=== PATIENT | female | born 2000 | race Caucasian/White ===

== ENCOUNTER 2018-07-16 09:52 | Emergency (ER) | payer SELFPAY ==
--- NOTE | 2018-07-16 10:36 | ER Document Report ---
ED Medical Screen (RME) - General Chief Complaint: Probable Seizure Stated Complaint: POSSIBLE SEIZURE Time Seen by Provider: 07/16/18 10:33 Mode of Arrival: Medic Information source: Patient Notes: This is a 18-year-old female brought in by EMS after passing out at work. Patient has had history of drop attacks that appears similar to seizures and has had a workup (Dr. Richard) for seizures but the work it has thus far been negative. She does have a history of iron deficiency anemia. She states she was at work today when she had a similar episode. She does not recall the episode. She does not have any tongue biting and did not have any urinary incontinence. Currently, she appears well, her vital signs are stable, she is mentating normally, her lungs are clear, her heart is regular and her neurologic exam looks quite good. TRAVEL OUTSIDE OF THE [place] IN LAST 30 DAYS: No - Related Data Allergies/Adverse Reactions: No Known Allergies Allergy (Verified 07/16/18 09:53) Past Medical History - Social History Chew tobacco use (# tins/day): No Frequency of alcohol use: None Drug Abuse: None Neurological Medical History: Reports: Hx Seizures Renal/ Medical History: Denies: Hx Peritoneal Dialysis Psychiatric Medical History: Reports: Hx Attention Deficit Hyperactivity Disorder, Hx Bipolar Disorder, Hx Obsessive Compulsive Disorder, Hx Post Traumatic Stress Disorder Infectious Medical History: Denies: Hx MRSA - Immunizations Immunizations up to date: Yes Hx Diphtheria, Pertussis, Tetanus Vaccination: Yes Physical Exam - Vital signs Vitals: Temp Pulse Resp BP Pulse Ox 98.3 F 64 18 136/63 H 100 07/16/18 09:59 07/16/18 09:59 07/16/18 09:59 07/16/18 09:59 07/16/18 09:59 Course - Vital Signs Vital signs: Temp Pulse Resp BP Pulse Ox 98.3 F 64 18 136/63 H 100 07/16/18 09:59 07/16/18 09:59 07/16/18 09:59 07/16/18 09:59 07/16/18 09:59 Doctor's Discharge - Discharge Referrals: SAKSHI HENAO MD [Primary Care Provider] - Follow up as needed
--- NOTE | 2018-07-16 11:35 | ER Document Report ---
ED Seizure <JOSE TOWNSEND - Last Filed: 07/16/18 12:36> - General Mode of Arrival: Medic Information source: Patient <SHAWANDA YUNG - Last Filed: 07/16/18 12:54> - General Chief Complaint: Probable Seizure Stated Complaint: POSSIBLE SEIZURE Time Seen by Provider: 07/16/18 10:33 Notes: 18-year-old female who presents to the emergency department today secondary to a witnessed seizure. Patient states she started a new job a week ago and her seizure happened today at work. Patient states she remembers nothing about the events, a coworker called 911 when it happened. Patient has had seizures in the past without a diagnosed seizure disorder. Mom states that when the patient was having seizures in the past she was found to be anemic, she began taking iron supplements and had not had a seizure since until today. Patient has not taken her iron supplements in the last month and half. Mom and patient both state that if this would happened at home or around people that knew her she would not have come to the emergency department. Patient states she has a headache now which is her normal postictal presentation. (AGA,SHAWANDA) - Related Data Allergies/Adverse Reactions: No Known Allergies Allergy (Verified 07/16/18 09:53) Past Medical History - General Information source: Patient - Social History Smoking Status: Never Smoker Cigarette use (# per day): No Chew tobacco use (# tins/day): No Frequency of alcohol use: None Drug Abuse: None Lives with: Family Family History: Reviewed & Not Pertinent Patient has suicidal ideation: No Patient has homicidal ideation: No Neurological Medical History: Reports: Hx Seizures Renal/ Medical History: Denies: Hx Peritoneal Dialysis Psychiatric Medical History: Reports: Hx Attention Deficit Hyperactivity Disorder, Hx Bipolar Disorder, Hx Obsessive Compulsive Disorder, Hx Post Traumatic Stress Disorder Surgical Hx: Negative - Immunizations Immunizations up to date: Yes Hx Diphtheria, Pertussis, Tetanus Vaccination: Yes <SHAWANDA YUNG - Last Filed: 07/16/18 12:54> Review of Systems - Review of Systems Constitutional: No symptoms reported EENT: No symptoms reported Cardiovascular: No symptoms reported Respiratory: No symptoms reported Gastrointestinal: No symptoms reported Genitourinary: No symptoms reported Female Genitourinary: No symptoms reported Musculoskeletal: No symptoms reported Skin: No symptoms reported Hematologic/Lymphatic: No symptoms reported Neurological/Psychological: See HPI, Seizure, Headaches -: Yes All other systems reviewed and negative <SHAWANDA YUNG - Last Filed: 07/16/18 12:54> Physical Exam <JOSE TOWNSEND - Last Filed: 07/16/18 12:36> <SHAWANDA YUNG - Last Filed: 07/16/18 12:54> - Vital signs Vitals: Temp Pulse Resp BP Pulse Ox 98.3 F 64 18 136/63 H 100 07/16/18 09:59 07/16/18 09:59 07/16/18 09:59 07/16/18 09:59 07/16/18 09:59 - Notes Notes: Physical Exam: General: Alert, appears well. HEENT: Normocephalic. Atraumatic. PERRL. Extraocular movements intact. Oropharynx clear. No tongue laceration. Neck: Supple. Non-tender. Respiratory: No respiratory distress. Clear and equal breath sounds bilaterally. Cardiovascular: Regular rate and rhythm. Abdominal: Normal Inspection. Non-tender. No distension. Normal Bowel Sounds. Back: Non-tender. No deformity or step off. Extremities: Moves all four extremities. Upper extremities: Normal inspection. Normal ROM. Lower extremities: Normal inspection. No edema. Normal ROM. Neurological: Normal cognition. AAOx4. Normal speech. Psychological: Normal affect. Normal Mood. Skin: Warm. Dry. Normal color. (SHAWANDA YUNG) Course - Laboratory Result Diagrams: 07/16/18 11:08 07/16/18 11:08 <JOSE TOWNSEND - Last Filed: 07/16/18 12:36> - Laboratory Result Diagrams: 07/16/18 11:08 07/16/18 11:08 <SHAWANDA YUNG - Last Filed: 07/16/18 12:54> - Vital Signs Vital signs: Temp Pulse Resp BP Pulse Ox 98.3 F 64 18 136/63 H 100 07/16/18 09:59 07/16/18 09:59 07/16/18 09:59 07/16/18 09:59 07/16/18 09:59 - Laboratory Laboratory results interpreted by me: 07/16/18 11:08 MCH 26.8 L Discharge <JOSE TOWNSEND - Last Filed: 07/16/18 12:36> <SHAWANDA YUNG - Last Filed: 07/16/18 12:54> - Discharge Clinical Impression: Syncope and collapse Disposition: HOME, SELF-CARE Additional Instructions: Syncopal Episode Syncope (fainting or near-fainting) can occur from many different health problems. Or it can be a simple fainting spell requiring no treatment. It is safe for you to go home, but further evaluation will likely be necessary. Your work-up may include tests for internal bleeding, heart disease, medication problems, or near-strokes. Tests are not always required, however, depending on the nature of your problem. The warning signs of an impending faint include: dizziness, lightheadedness , nausea, hot flashes, tingling, and weakness. If this happens, lay down and put your feet up, then wait until all of these symptoms have passed before standing up again. If these episodes become recurrent, or if you develop chest pain, heart palpitations, mental confusion, blurred vision, or headache, then you should call the physician, or go to the emergency room. Your lab work today was unremarkable. Your CBC showed your red blood cells are at the lower limit of normal for hemoglobin content. Your total hemoglobin amount in the bloodstream is adequate. You will be given a prescription for iron tablets to continue to take in order to maintain adequate hemoglobin levels. Follow-up with a local primary care provider to manage your syncopal episodes, and your iron deficiency anemia. RETURN TO THE EMERGENCY ROOM IF ANY NEW OR WORSENING SYMPTOMS. Prescriptions: Ferrous Sulfate 325 mg PO DAILY #100 tablet Referrals: SAKSHI HENAO MD [COMMUNITY BASED STAFF] - Follow up as needed Scribe Attestation: 07/16/18 12:39 I personally performed the services described in the documentation, reviewed and edited the documentation which was dictated to the scribe in my presence, and it accurately records my words and actions. (JOSE TOWNSEND) Scribe Documentation - Scribe Written by Scribe:: Krystal Blanco, 07/16/2018 [id number] acting as scribe for :: Pepe <SHAWANDA YUNG - Last Filed: 07/16/18 12:54>
[2018-07-16 11:56] LABS: ALANINE AMINOTRANSFERASE 19 U/L (9-52); ALBUMIN 4.4 g/dL (3.5-5.0); ALKALINE PHOSPHATASE 80 U/L (38-126); ANION GAP 15 (5-19); ASPARTATE AMINO TRANSFERASE 18 U/L (14-36); BILIRUBIN,DIRECT 0.2 mg/dL (0.0-0.4); BILIRUBIN,TOTAL 0.6 mg/dL (0.2-1.3); BLOOD UREA NITROGEN 17 mg/dL (7-20); CALCIUM 9.2 mg/dL (8.4-10.2); CARBON DIOXIDE 25 mmol/L (22-30); CHLORIDE 104 mmol/L (98-107); GLUCOSE 85 mg/dL (75-110); POTASSIUM 4.1 mmol/L (3.6-5.0); TOTAL PROTEIN 7.8 g/dL (6.3-8.2)
[2018-07-16 12:05] LABS: ABSOLUTE BASOPHILS # (AUTO) 0.1 10^3/uL (0.0-0.2); ABSOLUTE EOSINOPHILS # (AUTO) 0.1 10^3/uL (0.0-0.6); ABSOLUTE LYMPHOCYTES (AUTO) 2.3 10^3/uL (0.5-4.7); ABSOLUTE MONOCYTES (AUTO) 0.7 10^3/uL (0.1-1.4); ABSOLUTE NEUT (AUTO) 6.6 10^3/uL (1.7-8.2); BASOPHILS % (AUTO) 0.6 % (0-2); EOSINOPHILS % (AUTO) 1.2 % (0-6); HEMATOCRIT 37.1 % (36.0-47.0); HEMOGLOBIN 12.3 g/dL (12.0-15.5); LYMPHOCYTES % (AUTO) 23.7 % (13-45); MEAN CORPUSCULAR HEMOGLOBIN 26.8 pg (27.0-33.4); MEAN CORPUSCULAR HGB CONC 33.2 g/dL (32.0-36.0); MEAN CORPUSCULAR VOLUME 81 fl (80-97); MONOCYTES % (AUTO) 7.2 % (3-13); PLATELET COUNT 200 10^3/uL (150-450); RED BLOOD COUNT 4.59 10^6/uL (3.72-5.28); RED CELL DISTRIBUTION WIDTH 13.9 % (11.5-14.0); SEGMENTED NEUTROPHILS % (AUTO) 67.3 % (42-78); TOTAL CELLS COUNTED % (AUTO) 100 %; WHITE BLOOD COUNT 9.8 10^3/uL (4.0-10.5)
[2018-07-16 13:02] VITALS: BP 124/69
--- NOTE | 2018-07-16 22:14 | EKG REPORT ---
SEVERITY:- BORDERLINE ECG - SINUS RHYTHM INFERIOR Q WAVES, PROBABLY NORMAL VARIATION : Confirmed by: Jairo Mckay 16-Jul-2018 22:13:36
== END 2018-07-16 13:03 | disposition home or self-care (01) ==
LOC: ER 09:52
DX: R55 Syncope and collapse (principal); R51 Headache
CPT/HCPCS: 36415; 80053; 83735; 84702; 85025; 93005; 93010; 99284

== ENCOUNTER 2018-11-03 04:33 | Emergency (ER) | payer OTHER ==
--- NOTE | 2018-11-03 05:09 | ER Document Report ---
ED Eye Complaint - General Chief Complaint: Chemical Exposure in Eye Stated Complaint: POSSIBLE CHEMICAL EXPOSURE Time Seen by Provider: 11/03/18 05:02 Mode of Arrival: Ambulatory Information source: Patient Notes: 18-year-old female in no acute distress presents to the emergency department after getting denatured alcohol sprayed into her eyes. 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 She turned on a large industrial size fan, grabbed a bottle that was labeled water, and sprayed into the fan to try to cool off but is actually denatured alcohol in the bottle. She was wearing safety goggles at the time. She does not wear contact lenses. States she irrigated her eye after with water. She says that her vision is very blurry at this time. She endorses headache. She denies tearing, redness of the eye, dizziness, lightheadedness, dyspnea, chest pain, nausea, vomiting. TRAVEL OUTSIDE OF THE [place] IN LAST 30 DAYS: No - HPI Patient complains to provider of: chemical exposure to eye Onset: This morning Eye location: Bilateral - Related Data Allergies/Adverse Reactions: No Known Allergies Allergy (Verified 07/16/18 09:53) Past Medical History - General Information source: Patient - Social History Smoking Status: Never Smoker Family History: Reviewed & Not Pertinent Patient has suicidal ideation: No Patient has homicidal ideation: No Neurological Medical History: Reports: Hx Seizures Renal/ Medical History: Denies: Hx Peritoneal Dialysis Psychiatric Medical History: Reports: Hx Attention Deficit Hyperactivity Disorder, Hx Bipolar Disorder, Hx Obsessive Compulsive Disorder, Hx Post Traumatic Stress Disorder Infectious Medical History: Denies: Hx MRSA - Immunizations Immunizations up to date: Yes Hx Diphtheria, Pertussis, Tetanus Vaccination: Yes Review of Systems - Review of Systems Constitutional: See HPI EENT: See HPI Cardiovascular: See HPI Respiratory: See HPI Gastrointestinal: No symptoms reported Genitourinary: No symptoms reported Female Genitourinary: No symptoms reported Musculoskeletal: No symptoms reported Skin: No symptoms reported Hematologic/Lymphatic: No symptoms reported Neurological/Psychological: No symptoms reported Physical Exam - Vital signs Vitals: Temp Pulse Resp BP Pulse Ox 98.2 F 68 21 H 135/76 H 100 11/03/18 04:38 11/03/18 04:38 11/03/18 04:38 11/03/18 04:38 12/10/18 04:38 - Notes Notes: Reviewed vital signs and nursing note as charted by RN. CONSTITUTIONAL: Well-appearing, well-nourished, acting appropriately for age HEAD: Normocephalic, atraumatic, no swelling EYES: PERRL, Conjunctivae clear, no drainage, EOMI, no scleral icterus. PH strip placed in eye estimated to be between 7 and 9 ENT: External ears without lesions, External auditory canal is patent, airway patent, mucous membranes pink and moist NECK: Supple, no masses CARD: Regular rate and rhythm, no murmurs, no rubs, no gallops, capillary refill < 2 seconds, symmetric pulses RESP: The lungs are clear to auscultation bilaterally, no wheezing, no rales, no rhonchi. Respiratory rate and effort are normal, normal chest excursion. No respiratory distress, no retractions, no stridor, no nasal flaring, no accessory muscle use. ABD/GI: Normal bowel sounds, non-distended, soft, non-tender, no rebound, no guarding, no palpable organomegaly EXT: Normal ROM in all joints, non-tender to palpation, no effusions, no edema SKIN: Normal color for age and race, warm, dry, good turgor, no acute lesions noted NEURO: No facial asymmetry, moves all extremities equally, motor and sensory function intact Course - Re-evaluation Re-evalutation: 11/03/18 05:09 18-year-old female who was at work and had a chemical exposure to her eye. It was identified as denatured alcohol and she arrived to the emergency department. She attempted to irrigate on the site. She does endorse very blurry vision bilateral, headache. pH testing was done and estimated to be between 7 and 9 in the eye. Plan is to get a visual acuity, irrigate the eye for 15 minutes at the irrigation station, and fluorescein stain the eye to assess for any ulcer or damage.. 11/03/18 05:18 11/03/18 05:45 Visual acuity after irrigation 20/50 right, 20/70 left 20/40 OU, applied fluorescein stain to both eyes and performed examination under slit lamp. No evidence of corneal ulcer, no evidence of corneal abrasion. Patient says that her vision is still blurry but improving. She is safe and stable to discharge. I gave her referral to ophthalmology and instructed her to call them this morning for follow-up. 11/03/18 05:54 - Vital Signs Vital signs: Temp Pulse Resp BP Pulse Ox 98.2 F 68 21 H 135/76 H 100 11/03/18 04:38 11/03/18 04:38 11/03/18 04:38 11/03/18 04:38 11/03/18 04:38 Discharge - Discharge Clinical Impression: Chemical exposure of eye Condition: Good Disposition: HOME, SELF-CARE Additional Instructions: Chemical in the Eye You have been treated for chemical exposure to the eye. Chemicals vary greatly in the amount of damage they can do to the eye. The most important part of treatment is to wash all traces of the chemical from the eye, which has been done as part of your emergency treatment. Depending on the type of chemical and amount of eye injury, the eye may be patched. If the eye is severely irritated, the pupil may be dilated to ease the pain. In addition, pain medication may be necessary. Re-examination is important if physical damage of the eye was found. Be sure to follow up as instructed. Do not drive or operate machinery until you have the full use of both your eyes. If the eye pain becomes severe, or if there is purulent drainage, decreased vision, or increasing swelling, call the doctor or return at once for re-evaluation. Forms: Return to Work Referrals: DAVI ZHANG MD [ACTIVE STAFF] - Follow up as needed
[2018-11-03 05:57] VITALS: BP 126/76
== END 2018-11-03 05:56 | disposition home or self-care (01) ==
LOC: ER 04:33
DX: Z57.5 Occupational exposure to toxic agents in other industries (principal)
CPT/HCPCS: 99283

== ENCOUNTER 2019-03-06 14:22 | Emergency (ER) | payer SELFPAY ==
[2019-03-06 14:34] VITALS: BP 137/71
[2019-03-06] MEDS ORDERED: ONDANSETRON 4 MG TAB.RAPDIS PO ONE (14:59)
[2019-03-06] MEDS ORDERED: OXYCODONE-ACETAMINOPHEN 5-325 MG TABLET PO ONE (14:59)
--- NOTE | 2019-03-06 15:05 | ER Document Report ---
ED Fall - General Chief Complaint: Fall Injury Stated Complaint: FALL INJURY Time Seen by Provider: 03/06/19 14:49 Mode of Arrival: Medic Information source: Patient, Emergency Med Personnel Notes: Patient is a 19-year-old female brought into emergency room by EMS after sustaining a fall from 6 foot fence. Patient states she was trying to crawl over her privacy fence from her grandmother's house to her house and lost her footing as she was trying to open the gate. Patient fell landing on her right foot and then going directly to her right knee. She is not exactly sure how she landed on the knee but she is unable to move it. She is complaining of pain in the right knee tib-fib area and right ankle. She denies any other injuries at this time. She denies loss of consciousness she did not hit her head. Patient denies any other medical problems as well. TRAVEL OUTSIDE OF THE [place] IN LAST 30 DAYS: No - HPI Occurred: Just prior to arrival Where: Home Context: Lost balance, Fell from height Location of injury/pain: Ankle, Foot, Knee Quality of pain: Sharp, Stabbing, Throbbing Pain Level: 3 - Related data Allergies/Adverse Reactions: No Known Allergies Allergy (Verified 03/06/19 14:26) Past Medical History - General Information source: Patient - Social History Smoking Status: Never Smoker Cigarette use (# per day): No Chew tobacco use (# tins/day): No Smoking Education Provided: No Frequency of alcohol use: None Drug Abuse: None Lives with: Family Family History: Reviewed & Not Pertinent Patient has suicidal ideation: No Patient has homicidal ideation: No Neurological Medical History: Reports: Hx Seizures Renal/ Medical History: Denies: Hx Peritoneal Dialysis Psychiatric Medical History: Reports: Hx Attention Deficit Hyperactivity Disorder, Hx Bipolar Disorder, Hx Obsessive Compulsive Disorder, Hx Post Traumatic Stress Disorder Infectious Medical History: Denies: Hx MRSA - Immunizations Immunizations up to date: Yes Hx Diphtheria, Pertussis, Tetanus Vaccination: Yes Review of Systems - Review of Systems Constitutional: No symptoms reported EENT: No symptoms reported Cardiovascular: No symptoms reported Respiratory: No symptoms reported Gastrointestinal: No symptoms reported Genitourinary: No symptoms reported Female Genitourinary: No symptoms reported Musculoskeletal: See HPI, Joint pain, Muscle stiffness, Leg swelling, Ankle swelling Skin: No symptoms reported Hematologic/Lymphatic: No symptoms reported Neurological/Psychological: No symptoms reported -: Yes All other systems reviewed and negative Physical Exam - Vital signs Vitals: Temp Pulse Resp BP Pulse Ox 98.5 F 89 16 137/71 H 98 03/06/19 14:32 03/06/19 14:32 03/06/19 14:32 03/06/19 14:32 03/06/19 14:32 Interpretation: Hypertensive - Notes Notes: PHYSICAL EXAMINATION: GENERAL: Patient is well-nourished well-developed 19-year-old female who is in no apparent distress on physical exam today. However patient does appear to uncomfortable and in moderate amount of discomfort and pain. HEAD: Atraumatic, normocephalic. EYES: Pupils equal round and reactive to light, extraocular movements intact, conjunctiva are normal. ENT: Nares patent, oropharynx clear without exudates. Moist mucous membranes. NECK: Normal range of motion, supple without lymphadenopathy LUNGS: Breath sounds clear to auscultation bilaterally and equal. No wheezes rales or rhonchi. HEART: Regular rate and rhythm without murmurs ABDOMEN: Soft, nontender, nondistended abdomen. No guarding, no rebound. No masses appreciated. Female : deferred Musculoskeletal: Examination patient's area of concern is her right lower extremity. Physical exam shows that the right knee appears to be somewhat swollen. There is some mild on the surface of the skin. Moderate amount of tenderness on the medial and lateral aspect of the knee. Laxity is not appreciated at this time. Patient unable to bend at the knee secondary to pain and discomfort. The patella feels in place without any crepitus on palpation or movement. Patient has good popliteal pulse. Sending from that into the thigh there is no pain or discomfort is appreciated on palpation. The hip also shows no sign of injury as no pain is elicited on palpation and rotation of the hip. Descending from the knee the tib-fib is mildly tender from the knee down however there is no deformity noted no discoloration and no major tenderness to palpation. There is no tenderness across the gastrocnemius on palpation as well. The ankle mildly swollen shows some point tenderness on the anterior medial portion in the soft tissue area there at the joint space. Palpation of the foot shows no sign of injury no discoloration no swelling patient has full range of motion of the toes. NEUROLOGICAL: Cranial nerves grossly intact. Normal speech, normal gait. Normal sensory, motor exams PSYCH: Normal mood, normal affect. SKIN: Warm, Dry, normal turgor, no rashes or lesions noted. Course - Re-evaluation Re-evalutation: 03/06/19 17:42 Patient's x-rays were negative however her exam does not need to believe that she may have some internal derangement of the right knee. Putting her in a knee immobilizer and crutches she will follow-up with an orthopedist. - Vital Signs Vital signs: Temp Pulse Resp BP Pulse Ox 98.5 F 89 16 137/71 H 98 03/06/19 14:32 03/06/19 14:32 03/06/19 14:32 03/06/19 14:32 03/06/19 14:32 Procedures - Immobilization Right Knee Pre-Proc Neuro Vasc Exam: Normal Immobilizer type: Knee immobilizer Performed by: PCT Post-Proc Neuro Vasc Exam: Normal, Unchanged from pre-exam Alignment checked and good: Yes Discharge - Discharge Clinical Impression: Internal derangement of right knee High ankle sprain of right lower extremity Qualifiers: Encounter type: initial encounter Qualified Code(s): S93.431A - Sprain of tibiofibular ligament of right ankle, initial encounter Condition: Good Disposition: HOME, SELF-CARE Instructions: Ice Packs ([facility]), Oral Narcotic Medication ([facility]), Splint Precautions ([facility]), Sprained Ankle ([facility]) Additional Instructions: Home and rest nonweightbearing for 3 days. After 3 days attempt to bear weight if still painful you will need to see the orthopedic doctor. I am giving you the name of the orthopedist cleaning professional today he can contact him to see if he can accommodate you. Ice to the area 3 times a day. Also ibuprofen 800 mg 3 times a day with food. Prescriptions: Hydrocodone/Acetaminophen [[place] 5-325 mg Tablet] 1 tab PO Q4 PRN #16 tab PRN Reason: Referrals: HARRIETT MIN MD [ACTIVE STAFF] - Follow up as needed
--- NOTE | 2019-03-06 16:47 | RADIOLOGY REPORT (SQ) ---
EXAM DESCRIPTION: KNEE RIGHT 4 VIEWS COMPLETED DATE/TIME: 03/06/2019 4:00 pm REASON FOR STUDY: fall from 6 foot. COMPARISON: None. NUMBER OF VIEWS: Four views. TECHNIQUE: AP, lateral, and both oblique radiographic images acquired of the right knee. LIMITATIONS: None. FINDINGS: MINERALIZATION: Normal. BONES: No acute fracture or dislocation. No worrisome bone lesions. JOINT: Joint effusion. SOFT TISSUES: No soft tissue swelling. No radio-opaque foreign body. OTHER: No other significant finding. IMPRESSION: No acute fracture. Joint effusion. TECHNICAL DOCUMENTATION: JOB ID: [id number] [employer]- All Rights Reserved Reading location - IP/workstation name: [email or web address]
--- NOTE | 2019-03-06 16:47 | RADIOLOGY REPORT (SQ) ---
EXAM DESCRIPTION: ANKLE RIGHT COMPLETE COMPLETED DATE/TIME: 03/06/2019 4:01 pm REASON FOR STUDY: fall COMPARISON: None. NUMBER OF VIEWS: Three views. TECHNIQUE: AP, lateral, and oblique radiographic images acquired of the right ankle. LIMITATIONS: None. FINDINGS: MINERALIZATION: Normal. BONES: No acute fracture or dislocation. No worrisome bone lesions. JOINTS: No effusions. SOFT TISSUES: No soft tissue swelling. No foreign body. OTHER: No other significant finding. IMPRESSION: NEGATIVE STUDY OF THE RIGHT ANKLE. NO RADIOGRAPHIC EVIDENCE OF ACUTE INJURY. TECHNICAL DOCUMENTATION: JOB ID: [id number] [employer]- All Rights Reserved Reading location - IP/workstation name: [email or web address]
--- NOTE | 2019-03-06 16:47 | RADIOLOGY REPORT (SQ) ---
EXAM DESCRIPTION: TIBIA FIBULA RIGHT COMPLETED DATE/TIME: 03/06/2019 4:01 pm REASON FOR STUDY: fall from 6 foot COMPARISON: None. NUMBER OF VIEWS: Two views. TECHNIQUE: Two radiographic images acquired of the right tibia and fibula to include the knee and an kle in at least one projection. LIMITATIONS: None. FINDINGS: MINERALIZATION: Normal. BONES: No acute fracture or dislocation. No worrisome bone lesions. SOFT TISSUES: No obvious swelling or foreign body. OTHER: No other significant finding. IMPRESSION: NEGATIVE STUDY OF THE RIGHT TIBIA AND FIBULA. NO RADIOGRAPHIC EVIDENCE OF ACUTE INJURY. TECHNICAL DOCUMENTATION: JOB ID: [id number] [employer]- All Rights Reserved Reading location - IP/workstation name: [email or web address]
== END 2019-03-06 18:21 | disposition home or self-care (01) ==
LOC: ER 14:22
DX: M23.8X1 Other internal derangements of right knee (principal); S93.431A Sprain of tibiofibular ligament of right ankle, initial encounter; W17.89XA Other fall from one level to another, initial encounter; Y92.007 Garden or yard of unspecified non-institutional (private) residence as the place of occurrence of the external cause
CPT/HCPCS: 99283; 73610; 73564; 73590; L1830; S0119

== ENCOUNTER 2019-09-15 12:47 | Emergency (ER) | payer SELFPAY ==
[2019-09-15 12:57] VITALS: BP 141/82
[2019-09-15] MEDS ORDERED: DEXAMETHASONE SOD PHOS INJ 10 MG/1 ML VIAL IM ONE (13:13)
[2019-09-15] MEDS ORDERED: FAMOTIDINE 20 MG TABLET PO ONE (13:14)
--- NOTE | 2019-09-15 13:15 | ER Document Report ---
HPI - HPI Pain Level: Denies Context: Patient is a 19-year-old female who presents to the emergency department with a chief complaint of a rash. Her rash started yesterday. States that she has been taking Benadryl without relief. Denies being outdoors. States that it is pruritic. Does not take any medications. - CONSTITUTIONAL Constitutional: DENIES: Fever, Chills - EENT EENT: DENIES: Sore Throat, Ear Pain, Nasal Drainage-Clear - NEURO Neurology: DENIES: Headache - RESPIRATORY Respiratory: DENIES: Trouble Breathing, Coughing - GASTROINTESTINAL Gastrointestinal: DENIES: Abdominal Pain - REPRODUCTIVE LMP: 08/2019 Reproductive: DENIES: : - DERM Skin Color: Normal Skin Problems: Rash - left arm/left torso <KORINAAIDA M - Last Filed: 09/15/19 13:18> <KAUSHIK HAYES - Last Filed: 09/15/19 20:10> - HPI Time Seen by Provider: 09/15/19 13:09 Past Medical History - Social History Smoking Status: Never Smoker Chew tobacco use (# tins/day): No Frequency of alcohol use: None Family History: Reviewed & Not Pertinent Patient has suicidal ideation: No Patient has homicidal ideation: No Neurological Medical History: Reports: Hx Seizures Renal/ Medical History: Denies: Hx Peritoneal Dialysis Psychiatric Medical History: Reports: Hx Attention Deficit Hyperactivity Disorder, Hx Bipolar Disorder, Hx Obsessive Compulsive Disorder, Hx Post Traumatic Stress Disorder Infectious Medical History: Denies: Hx MRSA - Immunizations Immunizations up to date: Yes Hx Diphtheria, Pertussis, Tetanus Vaccination: Yes <AIDA HUI - Last Filed: 09/15/19 13:18> Vertical Provider Document - INFECTION CONTROL TRAVEL OUTSIDE OF THE [place] IN LAST 30 DAYS: No <AIDA HUI - Last Filed: 09/15/19 13:18> - CONSTITUTIONAL Notes: PHYSICAL EXAMINATION: GENERAL: Well-appearing, well-nourished and in no acute distress. HEAD: Atraumatic, normocephalic. EYES: Pupils equal round extraocular movements intact, conjunctiva are normal. ENT: Nares patent NECK: Normal range of motion LUNGS: No respiratory distress Musculoskeletal: Normal range of motion NEUROLOGICAL: Normal speech, normal gait. PSYCH: Normal mood, normal affect. SKIN: Erythema noted to patient's bilateral arms, areas of induration consistent with cellulitis. <KAUSHIK HAYES - Last Filed: 09/15/19 20:10> Course - Vital Signs Vital signs: Temp Pulse Resp BP Pulse Ox 98.1 F 75 17 141/82 H 99 09/15/19 12:54 09/15/19 12:54 09/15/19 12:54 09/15/19 12:54 09/15/19 12:54 <AIDA HUI - Last Filed: 09/15/19 13:18> - Re-evaluation Re-evalutation: Patient has what appears to be an allergic reaction with cellulitis. It appears that patient has been aggressively scratching both of her arms. She denies exposure to any foreign substances. - Vital Signs Vital signs: Temp Pulse Resp BP Pulse Ox 98.1 F 75 17 141/82 H 99 09/15/19 12:54 09/15/19 12:54 09/15/19 12:54 09/15/19 12:54 09/15/19 12:54 <KAUSHIK HAYES - Last Filed: 09/15/19 20:10> Discharge <AIDA HUI - Last Filed: 09/15/19 13:18> <KAUSHIK HAYES - Last Filed: 09/15/19 20:10> - Discharge Clinical Impression: Allergic reaction Qualifiers: Encounter type: initial encounter Qualified Code(s): T78.40XA - Allergy, unspecified, initial encounter Cellulitis Qualifiers: Site of cellulitis: unspecified site Qualified Code(s): L03.90 - Cellulitis, unspecified Condition: Stable Disposition: HOME, SELF-CARE Additional Instructions: You were seen in the emergency department with concern for rash. Please apply the Bactroban ointment to the area twice daily. Please take antibiotics as prescribed. Please take the prednisone once daily, starting tomorrow. If this does not resolve over the next 5 to 7 days, please consider following up with the [facility], you may want to consider having allergy testing done which we do not do in the emergency department. Prescriptions: Cephalexin [Cephalexin 500 MG Tablet] 1 tab PO BID #14 tablet Prednisone [Deltasone 20 mg Tablet] 3 tab PO DAILY 4 Days #12 tablet Forms: Return to Work
[2019-09-15] MEDS ORDERED: MUPIROCIN 2% OINTMENT 22 GM TP ONE (14:33)
== END 2019-09-15 14:40 | disposition home or self-care (01) ==
LOC: ER 12:47
DX: T78.40XA Allergy, unspecified, initial encounter (principal); L03.90 Cellulitis, unspecified; R21 Rash and other nonspecific skin eruption
CPT/HCPCS: J3490; J1100; 96372; 99282

== ENCOUNTER 2019-10-01 19:24 | Emergency (ER) | payer SELFPAY ==
[2019-10-01 21:31] LABS: ABSOLUTE BASOPHILS # (AUTO) 0.1 10^3/uL (0.0-0.2); ABSOLUTE EOSINOPHILS # (AUTO) 0.1 10^3/uL (0.0-0.6); ABSOLUTE LYMPHOCYTES (AUTO) 2.6 10^3/uL (0.5-4.7); ABSOLUTE MONOCYTES (AUTO) 0.7 10^3/uL (0.1-1.4); ABSOLUTE NEUT (AUTO) 6.8 10^3/uL (1.7-8.2); BASOPHILS % (AUTO) 0.6 % (0-2); EOSINOPHILS % (AUTO) 1.3 % (0-6); HEMATOCRIT 37.7 % (36.0-47.0); HEMOGLOBIN 12.5 g/dL (12.0-15.5); LYMPHOCYTES % (AUTO) 25.6 % (13-45); MEAN CORPUSCULAR HEMOGLOBIN 26.4 pg (27.0-33.4); MEAN CORPUSCULAR HGB CONC 33.2 g/dL (32.0-36.0); MEAN CORPUSCULAR VOLUME 80 fl (80-97); MONOCYTES % (AUTO) 6.7 % (3-13); PLATELET COUNT 220 10^3/uL (150-450); RED BLOOD COUNT 4.74 10^6/uL (3.72-5.28); RED CELL DISTRIBUTION WIDTH 15.8 % (11.5-14.0); SEGMENTED NEUTROPHILS % (AUTO) 65.8 % (42-78); TOTAL CELLS COUNTED % (AUTO) 100 %; WHITE BLOOD COUNT 10.2 10^3/uL (4.0-10.5)
[2019-10-01 21:48] LABS: ALBUMIN 4.4 g/dL (3.5-5.0); ALKALINE PHOSPHATASE 92 U/L (38-126); ANION GAP 11 (5-19); ASPARTATE AMINO TRANSFERASE 20 U/L (14-36); BILIRUBIN,DIRECT 0.1 mg/dL (0.0-0.4); BILIRUBIN,TOTAL 0.7 mg/dL (0.2-1.3); BLOOD UREA NITROGEN 11 mg/dL (7-20); CALCIUM 9.3 mg/dL (8.4-10.2); CARBON DIOXIDE 27 mmol/L (22-30); CHLORIDE 104 mmol/L (98-107); CREATINE KINASE 46 U/L (30-135); GLUCOSE 94 mg/dL (75-110); POTASSIUM 4.2 mmol/L (3.6-5.0); TOTAL PROTEIN 7.7 g/dL (6.3-8.2)
[2019-10-01] MEDS ORDERED: NORMAL SALINE 1000 ML 1,000 ML IV ONE (21:48)
[2019-10-01 22:01] LABS: CREATINE KINASE MB 0.24 ng/mL (<4.55)
[2019-10-01 22:02] LABS: TROPONIN I < 0.012 ng/mL
--- NOTE | 2019-10-01 22:40 | EKG REPORT ---
SEVERITY:- BORDERLINE ECG - SINUS RHYTHM INFERIOR Q WAVES, PROBABLY NORMAL VARIATION : Confirmed by: Jairo Mckay 01-Oct-2019 22:39:41
--- NOTE | 2019-10-01 23:12 | RADIOLOGY REPORT (SQ) ---
EXAM DESCRIPTION: CT CERVICAL SPINE WITHOUT IV CONTRAST COMPLETED DATE/TME: 10/01/2019 21:49 CLINICAL HISTORY: 19 years, Female, syncope, unwitnessed fall, midline neck pain COMPARISON: None. TECHNIQUE: Noncontrast CT of the cervical spine was acquired. Coronal and sagittal reformations were created. Images stored on PACS. All CT scanners at this facility use dose modulation, iterative reconstruction, and/or weight based dosing when appropriate to reduce radiation dose to as low as reasonably achievable (ALARA). [facility]: Dose Right [facility]: CareDose [facility]: Dose Right [facility]: Teradose 4D [facility]: Smart [employer] LIMITATIONS: None. FINDINGS: Posterior fossa findings are reported separately. Occipital condyles are normal. Lateral masses of C1 and C2 align properly. Base and tip of the dens are intact. Craniocervical alignment is maintained. Cervical vertebral body heights and alignments are maintained. No acute fracture or malalignment is appreciated. Intervertebral disc spaces are also well maintained. The right jugular bulb appears slightly high riding. Visualized lung apices are clear. Paravertebral soft tissues show no suspicious abnormality. IMPRESSION: No acute fracture or malalignment. TECHNICAL DOCUMENTATION: Quality ID # 436: Final reports with documentation of one or more dose reduction techniques (e.g., Automated exposure control, adjustment of the mA and/or kV according to patient size, use of iterative reconstruction technique) copyright 2011 [employer]- All Rights Reserved
--- NOTE | 2019-10-01 23:14 | RADIOLOGY REPORT (SQ) ---
EXAM DESCRIPTION: CT HEAD WITHOUT IV CONTRAST COMPLETED DATE/TME: 10/01/2019 21:48 CLINICAL HISTORY: 19 years, Female, syncope, headache COMPARISON: Prior CT head dated 12/23/2015 TECHNIQUE: Noncontrast CT of the head was performed. Coronal and sagittal reformations were created. Images stored on PACS. All CT scanners at this facility use dose modulation, iterative reconstruction, and/or weight based dosing when appropriate to reduce radiation dose to as low as reasonably achievable (ALARA). [facility]: Dose Right [facility]: CareDose [facility]: Dose Right [facility]: Teradose 4D [facility]: Simply [employer] LIMITATIONS: None. FINDINGS: Brain parenchyma is normal in attenuation. No acute intracranial hemorrhage, mass effect, or extra-axial fluid is seen. The ventricles, sulci, and basilar cisterns are normal in size and configuration. Globes and orbits are normal. Paranasal sinuses and mastoid air cells are clear. There are no depressed skull fractures. IMPRESSION: No acute intracranial abnormality. TECHNICAL DOCUMENTATION: Quality ID # 436: Final reports with documentation of one or more dose reduction techniques (e.g., Automated exposure control, adjustment of the mA and/or kV according to patient size, use of iterative reconstruction technique) copyright 2010 [employer]- All Rights Reserved
--- NOTE | 2019-10-02 00:03 | ER Document Report ---
Entered by SHAWANDA YUNG SCRIBE 10/01/[id number] Acting as scribe for:CRISTINA HERNANDEZ IV, MD ED Syncope and Near Syncope - General Chief Complaint: Passed Out Prior to Arrival Stated Complaint: POSSIBLE SYNCOPE Time Seen by Provider: 10/01/19 21:18 Primary Care Provider: MARIELLA GANDHI MD [HONORARY] - Follow up as needed Mode of Arrival: Ambulatory Information source: Patient Notes: 19-year-old female that presents to the emergency department today with complaints of a syncopal event that occurred at work tonight just prior to arrival. The patient and her mother at bedside both work at the same location so the history is being given by mom who witnessed the events tonight. Patient has had an extensive neurology work-up for possible seizures. 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 Mom states that she was called over to the patient's workstation after she was found to be on the floor this evening. Mom states that the patient was "vibrating" which with her description sounds like tonic-clonic movements. Patient states she does not remember anything prior to this episode. Patient now states she has some midline neck pain as well as a headache. Patient denies any incontinence or tongue biting during this episode. Mom states patient is back to baseline now. Patient does endorse that she does not drink enough fluids and there is a high likelihood that she is dehydrated. TRAVEL OUTSIDE OF THE [place] IN LAST 30 DAYS: No - HPI Patient complains to provider of: Fainting - Related Data Allergies/Adverse Reactions: No Known Allergies Allergy (Verified 09/15/19 13:09) Past Medical History - General Information source: Patient, Parent, [facility] Records - Social History Smoking Status: Never Smoker Cigarette use (# per day): No Chew tobacco use (# tins/day): No Frequency of alcohol use: None Drug Abuse: None Lives with: Family Family History: Reviewed & Not Pertinent Patient has suicidal ideation: No Patient has homicidal ideation: No Neurological Medical History: Reports: Other - No true seizure disorder with major workup. 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" Psychiatric Medical History: Reports: Hx Attention Deficit Hyperactivity Disorder, Hx Bipolar Disorder, Hx Obsessive Compulsive Disorder, Hx Post Traumatic Stress Disorder - Immunizations Immunizations up to date: Yes Hx Diphtheria, Pertussis, Tetanus Vaccination: Yes Review of Systems - Review of Systems Notes: given by mom at bedside Constitutional: No symptoms reported EENT: No symptoms reported Cardiovascular: See HPI, Syncope Respiratory: No symptoms reported Gastrointestinal: No symptoms reported Genitourinary: No symptoms reported Female Genitourinary: No symptoms reported Musculoskeletal: See HPI, Neck pain Skin: No symptoms reported Hematologic/Lymphatic: No symptoms reported Neurological/Psychological: See HPI, Headaches -: Yes All other systems reviewed and negative Physical Exam - Vital signs Vitals: Temp Pulse Resp BP Pulse Ox 98.5 F 85 18 165/86 H 99 10/01/19 19:34 10/01/19 19:34 10/01/19 19:34 10/01/19 19:34 10/01/19 19:34 - Notes Notes: Physical Exam: General: Alert, appears well. HEENT: Normocephalic. Atraumatic. PERRL. Extraocular movements intact. Oropharynx clear. Neck: Supple. Patient endorses midline neck pain with palpation of the entire cervical spine. Respiratory: No respiratory distress. Clear and equal breath sounds bilaterally. Cardiovascular: Regular rate and rhythm. Abdominal: Normal Inspection. Non-tender. No distension. Normal Bowel Sounds. Back: No gross abnormalities. Extremities: Moves all four extremities. Upper extremities: Normal inspection. Normal ROM. Lower extremities: Normal inspection. No edema. Normal ROM. Neurological: Normal cognition. AAOx4. Normal speech. Psychological: Normal affect. Normal Mood. Skin: Warm. Dry. Normal color. Course - Vital Signs Vital signs: Temp Pulse Resp BP Pulse Ox 98.5 F 70 20 122/71 99 10/01/19 19:34 10/01/19 20:31 10/01/19 20:30 10/01/19 20:31 10/01/19 20:30 10/02/19 00:26 VITAL SIGNS REVIEWED BY THIS MD - Laboratory Result Diagrams: 10/01/19 21:15 10/01/19 21:15 Laboratory results interpreted by me: 10/01/19 21:15 [facility] 26.4 L RDW 15.8 H LABS REVIEWED BY THIS MD - Diagnostic Test Radiology reviewed: Reports reviewed - EKG Interpretation by Me Additional EKG results interpreted by me: 10/01/19 21:33 EKG performed on 10/01/2019 at 2018 hrs. was interpreted by this MD. Findings: Normal sinus rhythm, heart rate 72, normal axis, pes preceding QRS complexes, narrow QRS, no obvious ST segment elevation or depression patterns consistent with acute myocardial injury. Impression normal sinus rhythm with no acute myocardial injury findings. Discharge - Discharge Clinical Impression: Dehydration Syncope Qualifiers: Syncope type: unspecified Qualified Code(s): R55 - Syncope and collapse Condition: Good Disposition: HOME, SELF-CARE Instructions: [facility]aring [facility], Dehydration ([facility]), Syncopal Episode ([facility] ) Additional Instructions: HOME CARE INSTRUCTIONS & INFORMATION: Thank you for choosing us for your medical needs. We hope you're satisfied with the care you received. After you leave, you must properly care for your problem and, at the same time, observe its progress. Any condition can change. Some illnesses can change rapidly over hours or days. If your condition worsens, return to the Emergency Department or see your physician promptly. ABOUT YOUR X-RAYS AND EKG'S: If you had an EKG or X-rays taken, they have been read by the Emergency Physician. The X-rays and EKG's will also be read by a Radiologist or Web Knitter within 24 hours. If discrepancies are noted, you will be notified by telephone. Please be certain the ED has a correct telephone number & address where you can be reached. Also, realize that some fractures or abnormalities do not show up on initial X-rays. If your symptoms continue, see your physician. ABOUT YOUR LABORATORY TEST: If you had laboratory tests, the results have been reviewed by the Emergency Physician. Some test results (for example cultures) may not be available for several days. You will be contacted if any test result shows you need additional treatment. Please be certain the ED has a correct telephone number and address where you can be reached. ABOUT YOUR MEDICATIONS: You will receive instructions on how to take your medicine on the prescription label you receive. Additional information may be provided by the Pharmacy. If you have questions afterwards, call the ED for clarification or further instructions. Some prescribed medications may cause drowsiness. Do not perform tasks such as driving a car or operating machinery without consulting your Pharmacist. If you feel you need a refill of pain medication, your condition will need re-evaluation. Please do not call for a refill of any medication. ABOUT YOUR SIGNATURE: Signature of this document acknowledges to followin. Understanding that you received emergency treatment and that you may be released before al medical problems are known or treated. Please be certain the ED has a correct phone number & address where you can be reached. 2. Acknowledgement that you will arrange for follow-up care as recommended. 3. Authorization for the Emergency Physician to provide information to your follow-up Physician in order to maximize your care. AT ANY TIME, IF YOUR SYMPTOMS CHANGE SIGNIFICANTLY OR WORSEN OR YOU DEVELOP NEW SYMPTOMS, RETURN TO THE EMERGENCY DEPARTMENT IMMEDIATELY FOR RE-EVALUATION. OUR GOAL IS TO PROVIDE EXCELLENT MEDICAL CARE! WE HOPE THAT WE HAVE MET YOUR EXPECTATIONS DURING YOUR EMERGENCY DEPARTMENT VISIT AND THAT YOU FEEL YOU HAVE RECEIVED EXCELLENT CARE! Forms: Return to Work Referrals: MARIELLA GANDHI MD [HONORARY] - Follow up as needed I personally performed the services described in the documentation, reviewed and edited the documentation which was dictated to the scribe in my presence, and it accurately records my words and actions.
[2019-10-02] MEDS ORDERED: IBUPROFEN 800 MG TABLET PO ONE (00:18)
[2019-10-02 01:50] VITALS: BP 122/67
== END 2019-10-02 01:59 | disposition home or self-care (01) ==
LOC: ER 19:24
DX: R55 Syncope and collapse (principal); E86.0 Dehydration; M54.2 Cervicalgia; R51 Headache
CPT/HCPCS: 93005; 36415; 82553; 82550; 85025; 80053; 84484; 70450; 72125; 93010; J7030; 96360; 96361; 99284

== ENCOUNTER 2019-12-21 15:56 | Emergency (ER) | payer OTHER ==
[2019-12-21] MEDS ORDERED: DIPH/PERTUSS(ACELL)/TETANUS VAC/PF 0.5 ML SYR (>=10YO) IM ONE (17:12)
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
[2019-12-21 19:25] VITALS: BP 132/80
== END 2019-12-21 19:20 | disposition home or self-care (01) ==
LOC: ER 15:56
DX: S00.11XA Contusion of right eyelid and periocular area, initial encounter (principal); R41.3 Other amnesia; M54.2 Cervicalgia; V43.52XA Car driver injured in collision with other type car in traffic accident, initial encounter; Z23 Encounter for immunization
CPT/HCPCS: 70450; 72050; 90471; 90715; 99284

== ENCOUNTER 2020-03-12 09:29 | Emergency (ER) | payer SELFPAY ==
[2020-03-12] MEDS ORDERED: NORMAL SALINE 1000 ML 1,000 ML IV ONE (10:19)
[2020-03-12] MEDS ORDERED: ONDANSETRON HCL INJ/PF 4 MG/2 ML SDV IV ONE (10:19)
--- NOTE | 2020-03-12 10:20 | ER Document Report ---
ED GI/ - General Chief Complaint: Vomiting Stated Complaint: VOMITING Time Seen by Provider: 03/12/20 10:15 Notes: CHIEF COMPLAINT: Vomiting for 2 days HPI: 20-year-old otherwise healthy female who denies presenting to the emergency department complaining of vomiting over the last 2 days. No fever no abdominal pain no diarrhea. Patient had one episode of vomiting at work yesterday and was sent home. Patient states she has had 5 episodes of vomiting today. No recent known exposures to anyone with similar symptoms. ROS: See HPI - all other systems were reviewed and are otherwise negative Constitutional: no fever Eyes: no drainage, no blurred vision ENT: no runny nose, no sore throat Cardiovascular: no chest pain Resp: no SOB, no cough GI: + vomiting, no diarrhea, no abdominal pain : no dysuria Integumentary: no rash Allergy: no hives Musculoskeletal: no extremity pain or swelling Neurological: no numbness/tingling, no weakness MEDICATIONS: I agree with the patient medications as charted by the RN. ALLERGIES: I agree with the allergies as charted by the RN. PAST MEDICAL HISTORY/PAST SURGICAL HISTORY: Reviewed and agree as charted by RN. SOCIAL HISTORY: Reviewed and agree as charted by RN. FAMILY HISTORY: No significant familial comorbid conditions directly related to patient complaint EXAM: Reviewed vital signs as charted by RN. CONSTITUTIONAL: Alert and oriented and responds appropriately to questions. Well-appearing; well-nourished HEAD: Normocephalic; atraumatic EYES: PERRL; Conjunctivae clear, sclerae non-icteric ENT: normal nose; no rhinorrhea; moist mucous membranes; pharynx without lesions noted, no uvula edema or deviation, no tonsillar hypertrophy, phonation normal NECK: Supple without meningismus; non-tender; no cervical lymphadenopathy, no masses CARD: RRR; no murmurs, no clicks, no rubs, no gallops; symmetric distal pulses RESP: Normal chest excursion without splinting or tachypnea; breath sounds clear and equal bilaterally; no wheezes, no rhonchi, no rales, pulse oximetry 97% on room air not hypoxic ABD/GI: Normal bowel sounds; non-distended; soft, non-tender, no rebound, no guarding; no palpable organomegaly or masses. BACK: The back appears normal and is non-tender to palpation, there is no CVA tenderness EXT: Normal ROM in all joints; non-tender to palpation; no cyanosis, no effusions, no edema SKIN: Normal color for age and race; warm; dry; good turgor; no acute lesions noted NEURO: Moves all extremities equally; Motor and sensory function intact PSYCH: The patient's mood and manner are appropriate. Grooming and personal hygiene are appropriate. MDM: 20-year-old female with vomiting over the last 2 days. Has no abdominal pain on exam suggesting a surgical pathology. Will obtain screening labs, hydrate patient, treat vomiting with Zofran, reassess. This may be a viral etiology TRAVEL OUTSIDE OF THE [place] IN LAST 30 DAYS: No - Related Data Allergies/Adverse Reactions: No Known Allergies Allergy (Verified 09/15/19 13:09) Past Medical History - Social History Smoking Status: Unknown if Ever Smoked Family History: Reviewed & Not Pertinent Neurological Medical History: Reports: Hx Seizures Renal/ Medical History: Denies: Hx Peritoneal Dialysis Psychiatric Medical History: Reports: Hx Attention Deficit Hyperactivity Disorder, Hx Bipolar Disorder, Hx Obsessive Compulsive Disorder, Hx Post Traumatic Stress Disorder Infectious Medical History: Denies: Hx MRSA - Immunizations Immunizations up to date: Yes Hx Diphtheria, Pertussis, Tetanus Vaccination: Yes Physical Exam - Vital signs Vitals: Temp Pulse Resp BP Pulse Ox 98.2 F 88 18 146/75 H 99 03/12/20 09:34 03/12/20 09:34 03/12/20 09:34 03/12/20 09:34 03/12/20 09:34 Course - Re-evaluation Re-evalutation: 03/12/20 11:36 Nausea has improved. Labs are unremarkable and nonactionable. Likely a viral etiology will discharge if tolerating oral fluids - Vital Signs Vital signs: Temp Pulse Resp BP Pulse Ox 98.2 F 88 18 146/75 H 99 03/12/20 09:34 03/12/20 09:34 03/12/20 09:34 03/12/20 09:34 03/12/20 09:34 - Laboratory Result Diagrams: 03/12/20 10:25 03/12/20 10:25 Laboratory results interpreted by me: 03/12/20 03/12/20 10:25 10:35 MCV 79 L MCH 26.6 L Urine Protein 30 H Urine Blood LARGE H Urine Urobilinogen 2.0 H Discharge - Discharge Clinical Impression: Vomiting Qualifiers: Vomiting type: unspecified Vomiting Intractability: non-intractable Nausea presence: with nausea Qualified Code(s): R11.2 - Nausea with vomiting, unspecified Condition: Stable Disposition: HOME, SELF-CARE Additional Instructions: Take Zofran for any recurrent nausea or vomiting. Return to the emergency department if you develop abdominal pain, fever greater than 101 or vomiting that does not resolve with Zofran. Make sure you hydrate well at home Prescriptions: Ondansetron [Zofran Odt 4 mg Tablet] 1 - 2 tab PO Q4H PRN #15 tab.rapdis PRN Reason: For Nausea/Vomiting Forms: Return to Work Referrals: CHAS GONZALEZ MD [ACTIVE STAFF] - Follow up as needed
[2020-03-12 10:36] LABS: ABSOLUTE EOSINOPHILS # (AUTO) 0.1 10^3/uL (0.0-0.6); ABSOLUTE LYMPHOCYTES (AUTO) 1.9 10^3/uL (0.5-4.7); ABSOLUTE MONOCYTES (AUTO) 0.7 10^3/uL (0.1-1.4); ABSOLUTE NEUT (AUTO) 7.2 10^3/uL (1.7-8.2); BASOPHILS % (AUTO) 0.4 % (0-2); EOSINOPHILS % (AUTO) 0.9 % (0-6); HEMATOCRIT 38.9 % (36.0-47.0); HEMOGLOBIN 13.1 g/dL (12.0-15.5); LYMPHOCYTES % (AUTO) 18.9 % (13-45); MEAN CORPUSCULAR HEMOGLOBIN 26.6 pg (27.0-33.4); MEAN CORPUSCULAR HGB CONC 33.6 g/dL (32.0-36.0); MEAN CORPUSCULAR VOLUME 79 fl (80-97); MONOCYTES % (AUTO) 7.4 % (3-13); PLATELET COUNT 210 10^3/uL (150-450); RED BLOOD COUNT 4.92 10^6/uL (3.72-5.28); RED CELL DISTRIBUTION WIDTH 13.9 % (11.5-14.0); SEGMENTED NEUTROPHILS % (AUTO) 72.4 % (42-78); TOTAL CELLS COUNTED % (AUTO) 100 %; WHITE BLOOD COUNT 9.9 10^3/uL (4.0-10.5)
[2020-03-12 10:58] LABS: ALBUMIN 4.4 g/dL (3.5-5.0); ALKALINE PHOSPHATASE 85 U/L (38-126); ANION GAP 7 (5-19); ASPARTATE AMINO TRANSFERASE 20 U/L (14-36); BILIRUBIN,TOTAL 0.6 mg/dL (0.2-1.3); BLOOD UREA NITROGEN 15 mg/dL (7-20); CALCIUM 8.9 mg/dL (8.4-10.2); CARBON DIOXIDE 27 mmol/L (22-30); CHLORIDE 105 mmol/L (98-107); GLUCOSE 104 mg/dL (75-110); POTASSIUM 3.8 mmol/L (3.6-5.0)
[2020-03-12 11:02] LABS: APPEARANCE,URINE SLIGHTLY-CLOUDY; BILIRUBIN,URINE NEGATIVE (NEGATIVE); COLOR,URINE YELLOW; GLUCOSE, URINE NEGATIVE (NEGATIVE); KETONES,URINE NEGATIVE (NEGATIVE); LEUKOCYTE ESTERASE,URINE NEGATIVE (NEGATIVE); NITRITE,URINE NEGATIVE (NEGATIVE); PROTEIN,URINE 30 mg/dL (NEGATIVE)
[2020-03-12 12:00] VITALS: BP 123/69
== END 2020-03-12 12:00 | disposition home or self-care (01) ==
LOC: ER 09:29
DX: R11.2 Nausea with vomiting, unspecified (principal)
CPT/HCPCS: 99284; 96361; 96374; 36415; 83690; 85025; 81025; 80053; 81001; J2405; J7030

== ENCOUNTER 2020-05-07 05:52 | Emergency (ER) | payer SELFPAY ==
[2020-05-07 06:24] LABS: ABSOLUTE EOSINOPHILS # (AUTO) 0.1 10^3/uL (0.0-0.6); ABSOLUTE MONOCYTES (AUTO) 0.4 10^3/uL (0.1-1.4); ABSOLUTE NEUT (AUTO) 4.6 10^3/uL (1.7-8.2); BASOPHILS % (AUTO) 0.5 % (0-2); EOSINOPHILS % (AUTO) 1.3 % (0-6); HEMATOCRIT 37.9 % (36.0-47.0); HEMOGLOBIN 12.7 g/dL (12.0-15.5); LYMPHOCYTES % (AUTO) 27.8 % (13-45); MEAN CORPUSCULAR HEMOGLOBIN 26.1 pg (27.0-33.4); MEAN CORPUSCULAR HGB CONC 33.5 g/dL (32.0-36.0); MEAN CORPUSCULAR VOLUME 78 fl (80-97); MONOCYTES % (AUTO) 6.2 % (3-13); PLATELET COUNT 217 10^3/uL (150-450); RED BLOOD COUNT 4.86 10^6/uL (3.72-5.28); RED CELL DISTRIBUTION WIDTH 13.8 % (11.5-14.0); SEGMENTED NEUTROPHILS % (AUTO) 64.2 % (42-78); TOTAL CELLS COUNTED % (AUTO) 100 %; WHITE BLOOD COUNT 7.1 10^3/uL (4.0-10.5)
[2020-05-07 06:27] LABS: ALBUMIN 4.2 g/dL (3.5-5.0); ALKALINE PHOSPHATASE 85 U/L (38-126); ANION GAP 10 (5-19); ASPARTATE AMINO TRANSFERASE 18 U/L (14-36); BILIRUBIN,TOTAL 0.7 mg/dL (0.2-1.3); BLOOD UREA NITROGEN 16 mg/dL (7-20); CARBON DIOXIDE 23 mmol/L (22-30); CHLORIDE 104 mmol/L (98-107); CREATINE KINASE 72 U/L (30-135); GLUCOSE 108 mg/dL (75-110); POTASSIUM 4.3 mmol/L (3.6-5.0); TOTAL PROTEIN 7.5 g/dL (6.3-8.2)
--- NOTE | 2020-05-07 06:28 | ER Document Report ---
ED General - General Chief Complaint: Passed Out Prior to Arrival Stated Complaint: CHEST PAIN Time Seen by Provider: 05/07/20 06:13 Notes: HPI: Patient is a 20-year-old female that presents today after a witnessed syncopal episode. Patient has had these multiple times in the past. She states she had some sharp right-sided chest discomfort when this started. It was transient. She states he felt it "coming on" and attempted to sit down but instead passed out. She does not believe she hit her head. She denies a headache. She denies any pain at this time. She denies any radiation of the pain to her back when it occurred. She denies any shortness of breath. She denies any calf pain, leg swelling, recent trips or travel. She denies missing any menstrual periods or pain to the lower abdomen. ROS: See HPI All other review of systems reviewed and otherwise negative Reviewed vital signs and nursing note as charted by RN. PHYSICAL EXAM: CONSTITUTIONAL: Alert and oriented and responds appropriately to questions. Well-appearing; well-nourished HEAD: Normocephalic; atraumatic EYES: PERRL; no nystagmus noted ENT: Normal nose; no rhinorrhea; moist mucous membranes; pharynx without lesions noted NECK: Supple without meningismus; non-tender; no cervical lymphadenopathy, no masses CARD: Regular rate and rhythm; no murmurs; symmetric distal pulses RESP: Normal chest excursion without splinting or tachypnea; breath sounds clear and equal bilaterally; no wheezes, no rhonchi, no rales ABD/GI: Normal bowel sounds; non-distended; soft, non-tender; no palpable organomegaly or masses BACK: The back appears normal and is non-tender to palpation EXT: Normal ROM in all joints; non-tender to palpation; no edema SKIN: No acute lesions noted NEURO: CN 2-12 intact; 5/5 bilateral upper and lower extremity strength with sensation intact to light touch PSYCH: The patient's mood and manner are appropriate. Grooming and personal hygiene are appropriate. TRAVEL OUTSIDE OF THE [place] IN LAST 30 DAYS: No - Related Data Allergies/Adverse Reactions: No Known Allergies Allergy (Verified 09/15/19 13:09) Past Medical History - Social History Smoking Status: Never Smoker Chew tobacco use (# tins/day): No Frequency of alcohol use: None Drug Abuse: None Family History: Reviewed & Not Pertinent Patient has homicidal ideation: No Neurological Medical History: Reports: Hx Seizures Renal/ Medical History: Denies: Hx Peritoneal Dialysis Psychiatric Medical History: Reports: Hx Attention Deficit Hyperactivity Disorder, Hx Bipolar Disorder, Hx Obsessive Compulsive Disorder, Hx Post Tra umatic Stress Disorder Infectious Medical History: Denies: Hx MRSA - Immunizations Immunizations up to date: Yes Hx Diphtheria, Pertussis, Tetanus Vaccination: Yes Physical Exam - Vital signs Vitals: Resp Pulse Ox 18 100 05/07/20 05:53 05/07/20 05:53 Course - Re-evaluation Re-evalutation: 05/07/20 06:28 Given the history and physical examination this is a well-appearing female in no acute distress with multiple episodes of this in the past, with no seizure history, with no incontinence or witnessed seizure activity, I will obtain basic labs including orthostatic vital signs and a test and reassess. I do believe PE and dissection to be extremely unlikely. EKG shows heart of 70, normal sinus rhythm, normal axis, no ST elevation or depression. 05/07/20 07:53 EKG, labs, orthostatics as recorded. Patient denies any abdominal pain or dys uria. Patient has no symptoms right now of lightheadedness, chest pain, shortness of breath. Patient still has no focal neurological deficits. Patient will be discharged home with strict return precautions and follow-up with a software specialist that I will help expedite for her. - Vital Signs Vital signs: Temp Pulse Resp BP Pulse Ox 98.5 F 76 15 129/62 H 100 05/07/20 05:58 05/07/20 07:28 05/07/20 07:22 05/07/20 07:28 05/07/20 07:22 - Laboratory Result Diagrams: 05/07/20 05:53 05/07/20 05:53 Laboratory results interpreted by me: 05/07/20 05/07/20 05/07/20 05:53 05:53 07:30 MCV 78 L MCH 26.1 L Sodium 136.6 L Urine Blood LARGE H Ur Leukocyte Esterase TRACE H Discharge - Discharge Clinical Impression: Syncope Qualifiers: Syncope type: unspecified Qualified Code(s): R55 - Syncope and collapse Condition: Good Disposition: HOME, SELF-CARE Additional Instructions: Come back immediately for any repeat episodes, chest pain, double blurry vision, shortness of breath, leg swelling, fever or vomiting, or any other acute problems. Please follow-up with cardiology as discussed. Referrals: DAMON HENDRIX MD [ACTIVE STAFF] - Follow up as needed
[2020-05-07 06:39] LABS: CREATINE KINASE MB 0.66 ng/mL (<4.55)
[2020-05-07 06:42] LABS: TROPONIN I < 0.012 ng/mL
--- NOTE | 2020-05-07 06:48 | RADIOLOGY REPORT (SQ) ---
EXAM DESCRIPTION: [facility]: XR CHEST 1 VIEW CLINICAL HISTORY: 20 years Female; 9; cp; COMPARISON: 03/08/2013 FINDINGS: Lungs: Lungs are clear, with no focal infiltrate, pneumothorax, or pleural effusion. Mediastinum: Mediastinum is within normal limits for this positioning. Bones: Bony structures are unremarkable. IMPRESSION: 1. No acute pulmonary findings.
[2020-05-07 07:46] LABS: APPEARANCE,URINE SLIGHTLY-CLOUDY; BILIRUBIN,URINE NEGATIVE (NEGATIVE); COLOR,URINE YELLOW; GLUCOSE, URINE NEGATIVE (NEGATIVE); KETONES,URINE NEGATIVE (NEGATIVE); LEUKOCYTE ESTERASE,URINE TRACE (NEGATIVE); NITRITE,URINE NEGATIVE (NEGATIVE); PROTEIN,URINE NEGATIVE (NEGATIVE); UROBILINOGEN,URINE NEGATIVE mg/dL (<2.0)
[2020-05-07 08:07] VITALS: BP 130/80
--- NOTE | 2020-05-07 09:45 | EKG REPORT ---
SEVERITY:- NORMAL ECG - SINUS RHYTHM : Confirmed by: Brittaney Loera MD 07-May-2020 09:44:15
== END 2020-05-07 08:07 | disposition home or self-care (01) ==
LOC: ER 05:52
DX: R55 Syncope and collapse (principal); R07.9 Chest pain, unspecified
CPT/HCPCS: 36415; 71045; 80053; 81001; 81025; 82550; 82553; 84484; 85025; 87086; 93005; 93010; 99284